=== PATIENT | female | born 1995 | race Asian ===

== ENCOUNTER 2017-06-19 18:16 | Emergency (ER) | payer OTHER ==
[~2017-06-19] VITALS: Ht 160 cm; Wt 67.1 kg
--- NOTE | ~2017-06-19 | US85 ---
[facility] A Service of [facility] RADIOLOGY TEXT RESULTS PATIENT: CODY LAUREN V LOCATION: [facility] : [birth year] UNIT #: [id number] AGE: [address]: Es Neff APRN SEX: F ORDER DR: [id number] [facility]. [place], [place] [address] [id number] MR#: [id number] Acc #: [id number] NAME: CODY LAUREN : 1995 SEX: F STUDY DATE/TIME: 06/19/2017 19:59 UNIT: [facility]KS ROOM: STUDY DESCRIPTION: [facility] [place] [facility] Attending Physician: Es Neff A.P.R.N. Ordering Physician: Raymond Almonte R.N. Primary Care Physician: Primary Care Physician No MEDICAL IMAGING REPORT This report is preliminary unless electronic signature is present EXAM Right lower extremity DVT study, 06/19/2017 COMPARISON None. HISTORY Right calf pain for 3 days. The patient takes control pills. FINDINGS Structural miller-scale analysis, color Doppler flow analysis and waveform analysis with compression and augmentation of the right lower extremity deep veins were performed as per the protocol. TECHNIQUE Venous ultrasound examination of the right lower extremity was performed using grayscale, spectral Doppler and color flow Doppler imaging. FINDINGS The examination is negative. There is no evidence of right lower extremity deep venous thrombus from the groin to the lower calf. Visualized greater saphenous vein is also patent. IMPRESSION Negative examination. No evidence of right lower extremity deep venous thrombosis. Dictated by... Noni Dotson M.D. THIS IS AN ELECTRONICALLY VERIFIED REPORT [facility] A Service [facility] RADIOLOGY TEXT RESULTS PATIENT: CODY LAUREN V LOCATION: [facility] : [birth year] UNIT #: [id number] AGE: [address]: Es Neff APRN SEX: F ORDER DR: Noni Dotson M.D. at 06/20/2017 6:26 PM CESILIA/aletha TD: 06/20/2017 02:42 JOB #: [id number] MEDICAL IMAGING REPORT Page 1 of 1 COPY
== END 2017-06-19 20:44 | disposition home or self-care (01) ==
LOC: CFTX 18:16 → CED 18:16 → CFTX 19:03
DX: M79.661 Pain in right lower leg (principal)
CPT/HCPCS: 93971; 96372; 99284; J1885